=== PATIENT | male | born 1935 | race African-American/Black ===

== ENCOUNTER 2018-04-19 16:03 | Inpatient (IN) | payer OTHER ==
[~2018-04-19] VITALS: Ht 177.8 cm; Wt 74.4 kg
[2018-04-19] MEDS: FAMOTIDINE 20MG TABLET PO SCH (00:04)
[2018-04-19] MEDS: ASCORBIC ACID 500 MG TABLET PO SCH (00:04)
[2018-04-19 17:52] LABS: BASOPHILS % 0.2 % (0.0-2.0); EOSINOPHILS % 0.4 % (0.0-5.0); HEMATOCRIT. 37.8 % (42.0-52.0); HEMOGLOBIN. 12.3 g/dL (14.0-18.0); LYMPHOCYTES % 16.4 % (20.0-50.0); MEAN CORPUSCULAR HEMOGLOBIN 28.9 pg (28.0-32.0); MEAN CORPUSCULAR VOLUME 88.6 fL (80.0-94.0); MEAN PLATELET VOLUME 8.8 fl (7.4-10.4); MONOCYTES % 6.1 % (2.0-8.0); NEUTROPHILS % 76.9 % (40.0-76.0); PLATELET 169 x1000/uL (130-400); RED BLOOD CELL COUNT 4.27 mill/uL (4.7-6.1); RED CELL DISTRIBUTION WIDTH 13.4 % (11.6-14.6)
[2018-04-19 17:58] LABS: CHLORIDE 107 mEq/L (98-107)
[2018-04-19 17:59] LABS: INR 1.1; PROTHROMBIN TIME 11.3 sec (9.1-11.1)
[2018-04-19 18:02] LABS: ETHANOL BLOOD < 10 mg/dL
[2018-04-19 18:05] LABS: LDL CHOLESTEROL 96 mg/dL (5-100)
[2018-04-19] MEDS ORDERED: ACETAMINOPHEN 325MG TABLET PO PRN (18:30)
[2018-04-19] MEDS ORDERED: MAGNESIUM/ALUMINUM HYDROXIDE/SIMETHICONE 30ML UDC PO PRN (18:30)
[2018-04-19] MEDS ORDERED: GUAIFENESIN 200MG/10ML SUGAR FREE UDC PO PRN (18:30)
[2018-04-19] MEDS ORDERED: IPRATROPIUM/ALBUTEROL 0.5-3(2.5)MG/3ML NEB INH PRN (18:30)
[2018-04-19] MEDS ORDERED: DOCUSATE SODIUM 100MG CAPSULE PO PRN (18:30)
[2018-04-19] MEDS ORDERED: NITROGLYCERIN 0.4MG TABLET SL SL PRN (18:30)
[2018-04-19] MEDS ORDERED: KETOROLAC 15MG/ML VIAL IV PRN (18:30)
[2018-04-19] MEDS ORDERED: CLONIDINE 0.1MG TABLET PO PRN (18:30)
[2018-04-19] MEDS ORDERED: ONDANSETRON HCL 4MG/2ML INJ IV PRN (18:30)
[2018-04-19] MEDS ORDERED: LEVOFLOXACIN 500MG PREMIX 100 ML IV SCH ×2 (18:30→19:45)
[2018-04-19] MEDS ORDERED: CEFTRIAXONE 1 G PREMIX 50 ML IV ONE (19:00)
[2018-04-19 19:24] LABS: CLARITY URINE TURBID (CLEAR); COLOR URINE YELLOW (YELLOW); KETONES URINE NEGATIVE (NEGATIVE); LEUKOCYTE ESTERASE URINE 1+ (NEGATIVE); NITRITE URINE NEGATIVE (NEGATIVE); OCCULT BLOOD URINE 3+ (NEGATIVE); PROTEIN URINE 2+ (NEGATIVE); SPECIFIC GRAVITY URINE 1.005 (1.005-1.030); UROBILINOGEN URINE 0.2 E.U./dL (0.2-1.0)
[2018-04-19 19:36] LABS: T4 FREE 1.15 ng/dL (0.76-1.46)
[2018-04-19 19:53] LABS: FOLIC ACID (FOLATE) SERUM > 20.00 ng/mL (>5.38)
[2018-04-19 20:03] LABS: VITAMIN B12 SERUM 351 pg/mL (211-911)
[2018-04-19] MEDS ORDERED: NA PHOS,M-B/NA PHOS,DI-BA ENEMA 118ML PR PRN (21:00)
[2018-04-19] MEDS ORDERED: ZOLPIDEM TARTRATE 5MG TABLET PO PRN (21:00)
[2018-04-20] VITALS: BP 123/83
[2018-04-20] MEDS: SODIUM CHLORIDE 0.9% 1,000 ML IV SCH ×2 (00:04→15:46)
[2018-04-20 00:29] LABS: CREATINE KINASE 83 IU/L (39-308)
[2018-04-20 00:30] LABS: CREATINE KINASE MB FRACTION < 1.0 ng/mL (0.5-3.6)
[2018-04-20] MEDS ORDERED: LEVOFLOXACIN 500MG PREMIX 100 ML IV SCH (01:00)
[2018-04-20] MEDS: DIPHENHYDRAMINE 50MG/ML VIAL IV PRN ×2 (02:10→10:59)
[2018-04-20 04:00] VITALS: BP 105/57
[2018-04-20 08:00] VITALS: BP 116/56
[2018-04-20 08:05] LABS: CREATINE KINASE MB FRACTION 1.3 ng/mL (0.5-3.6)
[2018-04-20] MEDS ORDERED: ENOXAPARIN 40MG/0.4ML SYR SUBCUT SCH (09:00)
[2018-04-20] MEDS ORDERED: ZINC SULFATE 220 MG ( 50 ) CAPSULE PO SCH (09:00)
[2018-04-20] MEDS ORDERED: ASPIRIN 325MG EC TABLET PO SCH (09:00)
[2018-04-20] MEDS: ASCORBIC ACID 500 MG TABLET PO SCH (09:22)
[2018-04-20] MEDS: FAMOTIDINE 20MG TABLET PO SCH (09:22)
[2018-04-20 12:00] VITALS: BP 124/69
[2018-04-20 17:04] VITALS: BP 129/68
[2018-04-20] MEDS ORDERED: CEFTRIAXONE 1 G PREMIX 50 ML IV SCH ×2 (19:26→20:00)
== END 2018-04-20 18:43 | disposition short-term general hospital (02) | DRG 871 ==
LOC: ER 16:03 → OBSVTOIN 18:13 → 5WST 18:13 → EDBEDREQSVC 18:16 → EDBEDREQ 18:16 → EDBEDREQTM 18:16 → ENRESERV 22:01 → EDBEDREQ 22:36
PROVIDERS: ADMIT Internal Medicine; ATTEND Internal Medicine
DX: A41.9 Sepsis, unspecified organism (principal); G92 Toxic encephalopathy; N39.0 Urinary tract infection, site not specified; D63.8 Anemia in other chronic diseases classified elsewhere; G30.9 Alzheimer's disease, unspecified; F02.80 Dementia in other diseases classified elsewhere, unspecified severity, without behavioral disturbance, psychotic disturbance, mood disturbance, and anxiety; I10 Essential (primary) hypertension; Z86.73 Personal history of transient ischemic attack (TIA), and cerebral infarction without residual deficits
CPT/HCPCS: 36415; 70450; 70551; 71045; 80053; 80061; 81003; 82550; 82553; 82607; 82746; 82962; 83036; 83540; 83550; 83605; 83721; 84439; 84443; 84484; 85025; 85610; 87040; 87086; 93005; 93306; 93970; G0378; G0482; J0696; J1200; J1650; J1956; J7030